=== PATIENT | male | born 1935 | race African-American/Black ===

== ENCOUNTER → 2018-07-11 | Day surgery (SDC) | payer MEDICARE ==
--- NOTE | 2018-07-08 12:55 | Diagnostic Imaging Report ---
EXAM: CHEST 2 VIEWS, PA and lateral DATE: 07/08/2018Time stamp on exam: 12:33 PM INDICATION: Preoperative COMPARISON: None FINDINGS: LINES/TUBES: None LUNGS: Left basilar atelectasis. PLEURA: Small left pleural effusion. HEART AND MEDIASTINUM: Normal size and contour. BONES AND SOFT TISSUES: No acute findings. Degenerative changes of the spine. IMPRESSION: Small left pleural effusion with left basilar atelectasis. Signed by: Dr. Elias Owens DO on 07/08/2018 12:52 PM
[2018-07-08 13:02] LABS: BASOPHILS # (AUTO) 0.1 (0.0-0.1); BASOPHILS % 0.7 % (0.0-1.0); EOSINOPHILS # (AUTO) 0.1 (0.0-0.4); EOSINOPHILS % 1.9 % (0.0-6.0); HEMATOCRIT 32.2 % (38.2-49.6); HEMOGLOBIN 10.3 g/dL (14.0-18.0); LYMPHOCYTES # (AUTO) 2.6 (1.0-3.2); LYMPHOCYTES % 36.2 % (18.0-39.1); MEAN CORPUSCULAR VOLUME 90.7 fL (81-99); MONOCYTES # (AUTO) 0.4 (0.2-0.8); MONOCYTES % 5.7 % (4.4-11.3); NEUTROPHILS % 55.4 % (38.7-80.0); PLATELET COUNT 400 x10e3/uL (140-360); RED BLOOD COUNT 3.55 x10e6/uL (4.3-5.7); RED CELL DISTRIBUTION WIDTH 19.1 % (11.7-14.4)
[~2018-07-11] MED LIST: ALLOPURINOL100 MG PO; AMLODIPINE BESY10 MG PO; AUGMENTIN 500-1 EACH PO; CEFAZOLIN SOD 2 GM/D5W 50ML 50 ML IV ONE; DEXAMETHASONE SOD PHOS INJ 4 MG/ML VIAL ONE; EPHEDRINE SULFATE INJ 50 MG/10 ML SYR ONE; FENTANYL CITRATE/PF 100MCG/2 ML INJ ONE; FINASTERIDE5 MG PO; FLOMAX0.4 MG PO; GLYCOPYRROLATE INJ 1MG/ 5 ML SYR ONE; IOPAMIDOL 610MG/1ML 300 MG/ML VIAL IV ONE; LIDOCAINE HCL 2% LOCAL INJ 5 ML SDV VIAL INJ ONE; LISINOPRIL10 MG PO; ONDANSETRON HCL INJ 2MG/ML 2ML 2 MG/ML VIAL ONE; PROPOFOL IV EMULSION 10 MG/ML 20 ML VIAL ONE; SEVOFLURANE INHAL SOLN 250 ML PEN BTL ONE; SIMVASTATIN20 MG PO; olmesartan PO
--- OUTSIDE RECORDS SUMMARY | 2018-07-11 09:30 | XMS REPORT ---
Author Author [facility] Address Unknown Phone Unavailable Care Team Providers Care Hair Worker Name Role Phone DENNIS VAZQUEZ Unavailable Unavailable Problems This patient has no known problems. Allergies, Adverse Reactions, Alerts This patient has no known allergies or adverse reactions. Medications This patient has no known medications. Results Test Description Test Time Test Comments Text Results Atomic Results Result Comments CHEST 2 VIEWS 2018-07-08 12:51:00 [place] [address] Patient Name: GENE BROOKS MR #: [id number] : 1935 Age/Sex: 82/M Req #: [id number] Adm Physician: Ordered by: DENNIS VAZQUEZ MD Report #: [id number] Location: OR Room/Bed: Procedure: [id number] DX/CHEST 2 VIEWS Exam Date: Exam Time: REPORT STATUS: Signed EXAM: CHEST 2 VIEWS, PA and lateral DATE: 07/08/2018Time stamp on exam: 12:33 PM INDICATION: Preoperative COMPARISON: None FINDINGS: LINES/TUBES: None LUNGS: Left basilar atelectasis. PLEURA: Small left pleural effusion. HEART AND MEDIASTINUM: Normal size and contour. BONES AND SOFT TISSUES: No acute findings. Degenerative changes of the spine. IMPRESSION: Small left pleural effusion with left basilar atelectasis. Signed by: Dr. Delma Owens DO on 07/08/2018 12:52 PM Dictated By: DELMA OWENS DO 1252 Transcribed By: JARVIS on 07/08/18 1252 COPY TO: DENNIS VAZQUEZ MD
--- OUTSIDE RECORDS SUMMARY | 2018-07-11 09:30 | XMS REPORT ---
Author Organization Unknown Address [address] [place] [address] Phone [phone] Care Team Providers Care Transition Advisor Name Role Phone Joaquin Zepeda Jr Unavailable Unavailable Allergies Code Code System Name Reaction Severity Status Onset NKDA Medications Name Status Start Date Stop Date allopurinol 100 mg tablet TAKE 1 TABLET(S) EVERY DAY BY ORAL ROUTE FOR 90 DAYS. Completed 07/18/2017 amlodipine 10 mg tablet TAKE 1 TABLET(S) EVERY DAY BY ORAL ROUTE FOR 90 DAYS. Active Not available dorzolamide 22.3 mg-timolol 6.8 mg/mL eye drops Completed 06/27/2017 Ecotrin Low Strength 81 mg tablet,enteric coated Take 1 tablet every day by oral route for 90 days. Active Not available latanoprost 0.005 % eye drops Active Not available lisinopril 40 mg tablet TAKE 1 TABLET(S) EVERY DAY BY ORAL ROUTE FOR 90 DAYS. Completed 07/18/2017 sildenafil (antihypertensive) 20 mg tablet Take po: 3 to 5 tablets one hour prior to sexual activity; maximun 5 tablets per 24 hours Active Not available simvastatin 20 mg tablet TAKE 1 TABLET(S) EVERY DAY BY ORAL ROUTE FOR 90 DAYS. 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 11/30/2016 Impotence Active 04/05/2017 Benign Prostatic Hypertrophy without Outflow Obstruction Active 04/05/2017 Aphakia Active 06/27/2017 Anemia Active 06/28/2017 Procedures Date Name Performed by 04/23/1972 Hernia Repair Information not available Notes: cataract extraction left eye Lab Results Date Name Specimen Result Interpretation Description Value Range Status Address 07/18/2017 Fecal Occult Blood, Stool ABNORMAL Fecal Globin (Medicare) by Immunochemistry detected Final [facility]: [address] [place] 06/27/2017 CBC W/ Auto Diff Normal White Blood Cell Count 5.5 thousand/uL 3.8-10.8 thousand/uL Final [facility]: [address] [place] Low Red Blood Cell Count 3.88 million/uL 4.20-5.80 million/uL Final [facility]: [address] [place] Low Hemoglobin 11.7 g/dL 13.2-17.1 g/dL Final [facility]: [address] [place] Low Hematocrit 35.7 % 38.5-50.0 % Final [facility]: [address] [place] Normal Mcv 92.0 fL 80.0-100.0 fL Final [facility]: [address] Normal Mch 30.2 pg 27.0-33.0 pg Final [facility]: [address] [place] Normal Mchc 32.8 g/dL 32.0-36.0 g/dL Final [facility]: [address] [place] Normal Rdw 13.8 % 11.0-15.0 % Final [facility]: [address] [place] Normal Platelet Count 283 thousand/uL 140-400 thousand/uL Final [facility]: [address] [facility] Normal Mpv 9.4 fL 7.5-12.5 fL Final [facility]: [address] [facility] Normal Absolute Neutrophils 2849 cells/uL 7649-9093 cells/uL Final [facility]: [address] [facility] Normal Absolute Lymphocytes 2046 cells/uL 850-3900 cells/uL Final [facility]: [address] [facility] Normal Absolute Monocytes 446 cells/uL 200-950 cells/uL Final [facility]: [address] [facility] Normal Absolute Eosinophils 121 cells/uL 15-500 cells/uL Final [facility]: [address] Normal Absolute Basophils 39 cells/uL 0-200 cells/uL Final [facility]: [address] [place] [address], [place] Normal Neutrophils 51.8 % Final [facility]: [address] [place] [address], [place] Normal Lymphocytes 37.2 % Final [facility]: [address] [place] [address], [place] Normal Monocytes 8.1 % Final [facility]: [address] [place] [address], [place] Normal Eosinophils 2.2 % Final [facility]: [address] [place] [address], [place] Normal Basophils 0.7 % Final [facility]: [address] 06/27/2017 Lipid Panel, Serum Normal Cholesterol, Total 154 mg/dL <200 mg/dL Final [facility]: [address] Normal HDL Cholesterol 51 mg/dL >40 mg/dL Final [facility]: [address] Normal Triglycerides 64 mg/dL <150 mg/dL Final [facility]: [address] Normal LDL-cholesterol 88 mg/dL (calc) Final [facility]: [address] Normal Chol/hdlc Ratio 3.0 (calc) <5.0 (calc) Final [facility]: [address] Normal Non HDL Cholesterol 103 mg/dL (calc) <130 mg/dL (calc) Final [facility]: [address] 06/27/2017 HbA1C (Hemoglobin a1C), Blood Normal Hemoglobin a1C 5.0 % of total HGB <5.7 % of total HGB Final [facility]: [address] EAG (mg/dL) 97 (calc) Final [facility]: [address] EAG (mmol/L) 5.4 (calc) Final [facility]: [address] 06/27/2017 Uric Acid, Serum or Plasma Low Uric Acid 3.5 mg/dL 4.0-8.0 mg/dL Final [facility]: [address] 06/27/2017 CMP, Serum or Plasma High Glucose 104 mg/dL 65-99 mg/dL Final [facility]: [address] [place] Normal Urea Nitrogen (BUN) 20 mg/dL 7-25 mg/dL Final [facility]: [address] [place] High Creatinine 1.45 mg/dL 0.70-1.18 mg/dL Final [facility]: [address] Low eGFR Non-afr. Scottish 45 mL/min/1.73m2 > or=60 mL/min/1.73m2 Final [facility]: [address] [place] Low eGFR 53 mL/min/1.73m2 > or=60 mL/min/1.73m2 Final [facility]: [address] [place] [address] Normal BUN/creatinine Ratio 14 (calc) 6-22 (calc) Final [facility]: [address] [place] [address] Normal Sodium 140 mmol/L 135-146 mmol/L Final [facility]: [address] Normal Potassium 4.3 mmol/L 3.5-5.3 mmol/L Final [facility]: [address] [place] [address] Normal Chloride 105 mmol/L 98-110 mmol/L Final [facility]: [address] Normal Carbon Dioxide 26 mmol/L 20-31 mmol/L Final [facility]: [address] [place] [address] Normal Calcium 9.9 mg/dL 8.6-10.3 mg/dL Final [facility]: [address] [place] [address] Normal Protein, Total 8.0 g/dL 6.1-8.1 g/dL Final [facility]: [address] [facility] Normal Albumin 4.3 g/dL 3.6-5.1 g/dL Final [facility]: [address] [facility] Normal Globulin 3.7 g/dL (calc) 1.9-3.7 g/dL (calc) Final [facility]: [address] Normal Albumin/globulin Ratio 1.2 (calc) 1.0-2.5 (calc) Final [facility]: [address] [place] [address] Normal Bilirubin, Total 0.8 mg/dL 0.2-1.2 mg/dL Final [facility]: [address] Normal Alkaline Phosphatase 66 U/L 40-115 U/L Final [facility]: [address] [place] [address] Normal Ast 14 U/L 10-35 U/L Final [facility]: [address] [place] [address] Low Alt 6 U/L 9-46 U/L Final [facility]: [address] [place] [address] 06/27/2017 TSH, Serum or Plasma Normal Tsh 1.15 mIU/L 0.40-4.50 mIU/L Final [facility]: [address] [place] [address] 06/27/2017 Iron + TIBC + Ferritin, Serum Normal Iron, Total 82 mcg/dL 50-180 mcg/dL Final [facility]: [address] [place] [address] Normal Iron Binding Capacity 320 mcg/dL (calc) 250-425 mcg/dL (calc) Final [facility]: [address] [place] [address] Normal % Saturation 26 % (calc) 15-60 % (calc) Final [facility]: [address] [place] [address] Normal Ferritin 36 NG/mL 20-380 NG/mL Final [facility]: [address] [place] [address] 06/27/2017 Test Authorization Test Name: iron, TIBC and ferritin panel Final [facility]: [address] [place] [address] Test Code: [id number] Final [facility]: [address] [place] [address] Client Contact: karrie reyes Final [facility]: [address] [place] [address] Report Always Message Signature Final [facility]: [address] [place] [address] Comment Final [facility]: [address] [place] [address] 06/27/2017 Vitamin B12 + Folate, Serum or Blood Normal Vitamin B12 203 pg/mL 200-1100 pg/mL Final [facility]: [address] [place] [address] Normal Folate, Serum 14.8 NG/mL Final [facility]: [address] [place] [address] Past Encounters 07/26/2017 Benign Hypertensive Renal Disease; Fecal Occult Blood: Positive Joaquin Zepeda Jr, MD: [address], [facility] [address], [place] [address], Ph. 07/18/2017 Benign Hypertensive Renal Disease; Chronic Kidney Disease Stage 3; Anemia; Hypouricemia; Immunization Joaquin Zepeda Jr, MD: [address] [facility] [address], [place] [address], Ph. 06/27/2017 Benign Hypertensive Renal Disease; Hyperlipidemia; Gouty Arthritis of the Hand; Lower Urinary Tract Symptoms Due to Benign Prostatic Hypertrophy; Impotence; Long-term Current Use of Drug Therapy; Adult Health Examination; Advance Directive Discussed with Patient; Depression Screening; At Risk for Falls; Body Mass Index 20-24 - Normal; Immunization Refused Joaquin Zepeda Jr, MD: [address] [address], Ph. 04/05/2017 Benign Hypertensive Renal Disease; Chronic Kidney Disease Stage 3; Gouty Arthritis of the Hand; Hyperlipidemia; Primary Open Angle Glaucoma of Left Eye; Benign Prostatic Hypertrophy without Outflow Obstruction; Impotence; Immunization Refused Mundo Khan MD: [address], [address] [address], Ph. Social History Smoking Status Never Smoker Vaccine List Vaccine Type pneumococcal conjugate PCV 13 07/18/20170.5 mL Plan of Care Patient Instructions It was good to see you in the office today for your Medicare Annual Wellness Visit. You have been provided some information on healthy nutrition, including a diet rich in fruits and vegetables, minimizing simple carbohydrates, salt, and saturated fats. I want to encourage regular cardiovascular exercise such as walking at least 30 minutes daily, 5 times per week. Please remember to schedule any preventive health measures that we talked about today. You have also been provided education on fall prevention and community- based lifestyle interventions to help reduce health risks and promote healthy living in your [facility] folder. Screening Recommendations 1. Vaccines Pneumococcal: discussed today and information sent with patient in their [facility] health folder Influenza: discussed today and information sent with patient in their [facility] health folder Shingles: discussed today and information sent with patient in their [place] health folder Tetanus: discussed today and information sent with patient in their [place] health folder 2. Prostate Screening: discussed today and information sent with patient in their [place] health folder 3. Colorectal cancer Screening Colonoscopy: discussed today and information sent with patient in their [place] health folder Fecal Occult Blood: discussed today and information sent with patient in their [place] health folder 4. Bone Mass Measurement: discussed today 5. Eye Exam Screening: discussed today 6. Cholesterol Screening: discussed today 7. Diabetes Screening: discussed today Reminders Provider Appointments None recorded. Lab None recorded. Referral None recorded. Procedures None recorded. Surgeries None recorded. Imaging None recorded. Vitals 07/26/2017 11:15AM Work In Same Day Height Weight BMI 5 ft 7 in 142 lbs 22.2 kg/m2 07/18/2017 09:15AM Est Patient Height Weight BMI Blood Pressure 5 ft 7 in 143 lbs 22.4 kg/m2 (1) 144/82 mm[Hg] (2) 138/82 mm[Hg] 06/27/2017 09:15AM JOURNEYMAN PIPE FITTER/EST CPX Height Weight BMI Blood Pressure 5 ft 7 in 148 lbs 23.2 kg/m2 150/80 mm[Hg] 04/05/2017 12:30PM Est Patient Height Weight BMI Blood Pressure 5 ft 7 in 146 lbs 22.9 kg/m2 130/70 mm[Hg]
--- OUTSIDE RECORDS SUMMARY | 2018-07-11 09:31 | XMS REPORT | Encounter Summary ---
Author Organization Unknown Address [address] [place] [address] Phone [phone] Care Team Providers Care Erp Engineer Name Role Phone Dr. Joaquin Zepeda 3 [phone] Joaquin Zepeda Jr, MD 3 [phone] Reason for Visit hospital follow up - TCM (VFP) Instructions 1. Hospital patient rolling walker physical therapy referral - PT to susy and kristin as indicated 2. Urostomy present 3. Sepsis 4. Urinary tract infectious disease 5. Ascites 6. At risk for falls preventing falls: care instructions Discussion Note: None recorded. Plan of Care Patient Instructions Please follow up with your doctor in two weeks. Follow up with any specialists that we discussed during your visit today. If you need help getting your medications filled, our [facility] can sync medication refills, deliver within a 10 mile radius, or [employer] overnight at no additional cost. Please watch for warning symptoms that may occur: *fever *redness/oozing at surgical site *shortness of breath *uncontrolled pain *unexpected weight gain/loss *high or low blood pressure *chest pain *confusion *any other health concerns Call us at if you experience these symptoms. In addition to these services our office offers social work coordinator services, home health options and chronic conditions management. Please reach out to us with your particular needs. Evening and Sunday clinic hours are available if you have problems. If you have problems after hours, you can reach the [facility] physician construction sales manager at . Reminders Provider Appointments None recorded. Lab None recorded. Referral Physical Therapy Referral 05/15/2018 [facility] Department (Use This One) Procedures None recorded. Surgeries None recorded. Imaging None recorded. Medications Name Start Date amlodipine 5 mg tablet Take 1 tablet every day by oral route. cefdinir 300 mg capsule Take 1 capsule every 12 hours by oral route for 6 days. 05/14/2018 latanoprost 0.005 % eye drops 1 drop every day to left eye olmesartan 40 mg tablet Take 1 tablet every day by oral route. simvastatin 20 mg tablet Take 1 tablet every day by oral route. timolol maleate 0.5 % eye gel forming solution Instill 1 drop every day by ophthalmic route for 30 days. Medications Administered None recorded. Vitals Height Weight BMI Blood Pressure 5 ft 7 in 128 lbs 20 kg/m2 138/78 mm[Hg] Lab Results None recorded. 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 Impotence Active 04/05/2017 Benign Prostatic Hypertrophy without Outflow Obstruction Active 04/05/2017 Aphakia Active 06/27/2017 Anemia Active 06/28/2017 History of Polyp of Colon Active 08/09/2017 Internal Hemorrhoids Active 12/25/2017 Hypouricemia Active 04/29/2018 Procedures Date Name Performed by 08/16/2017 Colonoscopy & Polypectomy Information not available 04/23/1972 Hernia Repair Information not available 04/29/2018 CT, Abdomen, W/o Contrast [facility] [address] [facility] [address] [place] [address] (Work Place) 05/08/2018 US, Abdomen, Complete [facility] [address] [place] [address] [place] [address] (Work Place) Vaccine List Vaccine Type pneumococcal conjugate PCV 13 07/18/20170.5 mL pneumococcal polysaccharide PPV23 01/24/2006 Social History Smoking Status Never Smoker Past Encounters 05/15/2018 Hospital Patient; Urostomy Present; Sepsis; Urinary Tract Infectious Disease; Ascites; At Risk for Falls Flora Dickerson NP: [id number] [facility], [address], [place] [address], Ph. 04/29/2018 Abdominal Pain; Diverticular Disease; Hypouricemia; Benign Hypertensive Renal Disease; Low Blood Pressure Joaquin Zepeda Jr, MD: [address], [address], [place] [phone], Ph. History of Present Illness TCM Provider Visit Reported By: Patient HPI: Timing: Date of admit:, Date of discharge:, Date of Initial Contact:, Please describe what events led up to this hospitalization:, Is Transitional Care Management team involved? Yes. Discharge Information: Discharge Diagnoses:, Discharged from: [facility], Discharged to: Home, Hospital Records (H&P, DC Summary, Transition of Care Document) reviewed and scanned? Yes, Current Caregivers:family, Home health ordered? no If so, Agency Name . Functional Status No difficulty following discharge instructions, Taking medications as prescribed, Understands missed doses, Following recommended activity level, Does patient need help getting medications filled? no, Is the patient dependent upon others to leave the home? yes, Durable medical equipment required? yes Note:Patient presents for initial TCM visit and follow up for chronic conditions at home. Pt has issues with transportation and getting to office for visits. Patient is unable to get to the office easily due to taxing effort ( fall risk and uses walking aids or wheelchair) and or the caregiver/family is incapable of taking them into the office without taxing effort. Current living condition is (satisfactory). Home is clean and uncluttered. Family and provider assists with ADLs.<div>
</div><div>Past medical history, family history, and social history were reviewed. Medication list reconciliation completed and allergies were also reviewed. Medication refills will be given as needed and laboratory testing will be considered and planned as needed to monitor chronic conditions. </div><div>
</div><div>NAD. Spouse present during visit. <div>
</div>< /div> Review of Systems Comprehensive General Adult ROS Reported By: Patient Constitutional: Constitutional: no fever, no night sweats, no significant weight gain, no significant weight loss Cardiovascular: Cardiovascular: no chest pain, no arm pain on exertion, no shortness of breath when walking, no shortness of breath when lying down, no palpitations, no known heart murmur, no lightheadedness Respiratory: Respiratory: no cough, no wheezing, no shortness of breath, no coughing up blood, no sleep apnea Gastrointestinal: Gastrointestinal: no abdominal pain, no nausea, no vomiting, no constipation, normal appetite, no diarrhea, not vomiting blood, no dyspepsia Genitourinary: Genitourinary: no hematuria, no increased frequency; urostomy Musculoskeletal: Musculoskeletal: muscle weakness Integumentary: Skin: no jaundice, no rashes, no laceration Neurologic: Neurologic: no loss of consciousness, no weakness, no numbness, no seizures, no dizziness, no migraines, no headaches, no tremor Psychiatric: Psych: no depression, no sleep disturbances, feeling safe in a relationship, no alcohol abuse, no anxiety, no hallucinations, no suicidal thoughts Endocrine: Endocrine: no fatigue Physical Exam General Adult Exam (male), Brief Abdominal Pain Exam Reported By: Patient Beater Engineer: Beater Engineer: present Constitutional: General Appearance: healthy-appearing, well-nourished, well-developed, alert, oriented. Level of Distress: NAD Psychiatric: Insight: good judgement. Mental Status: active and alert, normal mood, normal affect. Orientation: to time, to place, to person. Memory: recent memory normal, remote memory normal Lungs: Respiratory effort: no dyspnea. Auscultation: breath sounds normal, good air movement, no wheezing, no rales/crackles, no rhonchi. Lungs: clear to auscultation bilaterally Cardiovascular: Heart Auscultation: RRR, normal S1, normal S2, no murmurs Abdomen: Inspection and Palpation: soft, non-distended, no tenderness, no guarding, bowel sounds 4 quadrants; urostomy present. Liver: non-tender. Spleen: non-tender Musculoskeletal:: Motor Strength and Tone: abnormal; BLE 3/5. Joints, Bones, and Muscles: limited ROM. Extremities: no cyanosis, no edema
--- OUTSIDE RECORDS SUMMARY | 2018-07-11 09:31 | XMS REPORT | Encounter Summary ---
Author Organization Unknown Address [address] [place] [address] Phone [phone] Care Team Providers Care Lead Data Entry Operator Name Role Phone Dr. Joaquin Zepeda 3 [phone] Joaquin Zepeda Jr, MD 3 [phone] Reason for Visit hospital follow up - TCM (VFP) Instructions 1. Hospital patient rolling walker physical therapy referral - PT to eval and tx as indicated 2. Urostomy present 3. Sepsis 4. Urinary tract infectious disease 5. Ascites Discussion Note: None recorded. Patient educational handouts: No information available. Plan of Care Patient Instructions Please follow up with your doctor in two weeks. Follow up with any specialists that we discussed during your visit today. If you need help getting your medications filled, our [facility] can sync medication refills, deliver within [...] addition to these services our office offers aids social worker services, home health options and chronic conditions management. Please reach out to us with your particular needs. Evening and Sunday clinic hours are available if you have problems. If you have problems after hours, you can reach the [facility] physician lead injection mold technician at . Reminders Provider Appointments Est Patient 05/20/2018 10:15AM Joaquin Zepeda Jr, MD Lab None recorded. Referral Physical Therapy Referral 05/15/2018 [facility] Department (Use This One) Procedures None recorded. [...] not available 04/29/2018 CT, Abdomen, W/o Contrast [facility] [address] [place] [address] (Work Place) 05/08/2018 US, Abdomen, Complete [facility] [address] [place] [address] (Work Place) Vaccine List Vaccine Type pneumococcal conjugate PCV 13 07/18/20170.5 mL pneumococcal polysaccharide PPV23 01/24/2006 Social History Smoking Status Never Smoker Past Encounters 05/15/2018 Hospital Patient; Urostomy Present; Sepsis; Urinary Tract Infectious Disease; Ascites Flora Dickerson CABLE LAYER: [address] [facility], [address], [place] [address], Ph. 04/29/2018 Abdominal Pain; Diverticular Disease; Hypouricemia; Benign Hypertensive Renal Disease; Low Blood Pressure Joaquin Zepeda Jr, MD: [address] [facility], [address], [place] [address], Ph. History of Present Illness TCM Provider Visit Reported By: Patient HPI: Timing: Date of admit:, Date of discharge:, Date of Initial Contact:, Please describe what events led up to this hospitalization:, Is Transitional Care Management team involved? Yes. Discharge Information: Discharge Diagnoses:, Discharged from: [facility], Discharged to: Home, Hospital Records (H&P, [...] Brief Abdominal Pain Exam Reported By: Patient Instrument Room Technician: Instrument Room Technician: present Constitutional: General Appearance: healthy-appearing, well-nourished, well-developed, [...]
--- OUTSIDE RECORDS SUMMARY | 2018-07-11 09:31 | XMS REPORT | Encounter Summary ---
Author Organization Unknown Address [address] [place] [address] Phone [phone] Care Team Providers Care Molecular Modeler Name Role Phone Dr. Joaquin Zepeda 3 [phone] Joaquin Zepeda Jr, MD 3 [phone] Reason for Visit Quality BMI DEPRESSION FALL; AWV Annual Wellness Visit Male (VFP); Quality 65+ Instructions 1. Adult health examination 2. Body mass index less than 20 learning about healthy weight 3. Advance directive discussed with patient advance care planning: care instructions 4. Depression screening 5. At risk for falls preventing falls: care instructions 6. Benign hypertensive renal disease CMP, serum or plasma CBC w/ auto diff TSH, serum or plasma amlodipine 10 mg tablet olmesartan 40 mg tablet 7. Hyperlipidemia lipid panel, serum simvastatin 20 mg tablet 8. Chronic kidney disease stage 3 9. Benign prostatic hypertrophy with outflow obstruction 10. Indwelling urinary catheter bulb in urethra 11. Hypouricemia uric acid, serum or plasma 12. Impaired fasting glycaemia HbA1c (hemoglobin A1c), blood 13. Mild protein-calorie malnutrition (weight for age 75-89% of standard) Discussion Note: None recorded. Plan of Care Patient Instructions It was [...] risks and promote healthy living in your Annual Wellness folder. Screening Recommendations 1. Vaccines Pneumococcal: Recommended today Influenza: Recommended today Shingles: Recommended today Tetanus: Recommended today 2. Prostate Screening: No screening necessary 3. Colorectal cancer Screening Colonoscopy: No screening necessary Fecal Occult Blood: No screening necessary 4. Bone Mass Measurement: No screening necessary 5. Eye Exam Screening: discussed today 6. Cholesterol Screening: Ordered 7. Diabetes Screening: Ordered Reminders Provider Appointments Return to Office on or around 10/01/2018 Joaquin Zepeda Jr, MD Lab CMP, Serum or Plasma 07/01/2018 [facility] CBC W/ Auto Diff 07/01/2018 [facility] Lipid Panel, Serum 07/01/2018 [facility] TSH, Serum or Plasma 07/01/2018 [facility] Uric Acid, Serum or Plasma 07/01/2018 [facility] HbA1C (Hemoglobin a1C), Blood 07/01/2018 [facility] Referral None recorded. Procedures None recorded. Surgeries None recorded. Imaging None recorded. Medications Name Start Date amlodipine 10 mg tablet Take 1 tablet every day by oral route. latanoprost 0.005 % eye drops 1 drop every day to left eye olmesartan 40 mg tablet Take 1 tablet every day by oral route. simvastatin 20 mg tablet Take 1 tablet every day by oral route. sulfamethoxazole 800 mg-trimethoprim 160 mg tablet Take 1 tablet twice a day by oral route for 7 days. 07/01/2018 timolol maleate 0.5 % eye gel forming solution Instill 1 drop every day by ophthalmic route for 30 days. Medications Administered None recorded. Vitals Height Weight BMI Blood Pressure 5 ft 7 in 120 lbs 18.8 kg/m2 134/74 mm[Hg] Lab Results None recorded. 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 Impotence Active 04/05/2017 Aphakia Active 06/27/2017 Anemia Active 06/28/2017 History of Polyp of Colon Active 08/09/2017 Internal Hemorrhoids Active 12/25/2017 Hypouricemia Active 04/29/2018 Benign Prostatic Hypertrophy with Outflow Obstruction Active 06/03/2018 Indwelling Urinary Catheter Bulb in Urethra Active 06/03/2018 Mild Protein-calorie Malnutrition (Weight for Age 75-89% of Standard) Active 07/01/2018 Procedures Date Name Performed by 08/16/2017 Colonoscopy & Polypectomy Information not available 04/23/1972 Hernia Repair Information not available Vaccine List Vaccine Type pneumococcal conjugate PCV 13 07/18/20170.5 mL pneumococcal polysaccharide PPV23 01/24/2006 Social History Smoking Status Never Smoker Past Encounters 07/01/2018 Adult Health Examination; Body Mass Index Less than 20; Advance Directive Discussed with Patient; Depression Screening; At Risk for Falls; Benign Hypertensive Renal Disease; Hyperlipidemia; Chronic Kidney Disease Stage 3; Benign Prostatic Hypertrophy with Outflow Obstruction; Indwelling Urinary Catheter Bulb in Urethra; Hypouricemia; Impaired Fasting Glycaemia; Mild Protein-calorie Malnutrition (Weight for Age 75-89% of Standard) Joaquin Zepeda Jr, MD: [address], [address], [place] [address], Ph. 06/03/2018 Benign Hypertensive Renal Disease; Chronic Kidney Disease Stage 3; Benign Prostatic Hypertrophy with Outflow Obstruction; Indwelling Urinary Catheter Bulb in Urethra Jaoquin Zepeda Jr, MD: [address], [address], [place] [address], Ph. History of Present Illness Hypertension Reported By: Patient HPI: Severity: mild. Onset/Timing: gradual onset. Alleviating Factors: relieved with rest, medication. Self Care: not under emotional stress, blood pressure goal: 130/80. Associated Symptoms: no shortness of breath, no fatigue, no decline in exercise capacity Mini Cog Reported By: Patient Functional Ability: Personal/Social/ Draw a clock and write in the numbers in the correct place, and set the time to 10 minutes after 11 o'clock was completed correctly? No, 3 word recall: Your nurse or doctor will ask you to remember 3 words. In 5 minutes, they will ask you to repeat them. Patient recalled 2 words Hyperlipidemia Reported By: Patient HPI: Type of hyperlipidemia: combined, hypercholesterolemia. Duration: chronic. Current Therapy: currently taking: simvastatin, last LDL level: 88 date: 88. Compliance: compliant. Complications: no coronary artery disease. Risk Factors: hypertension Note:Patient presents for routine medication refill . Currently without new complaint. Review of Systems Comprehensive General Adult ROS Reported By: Patient Constitutional: Constitutional: no significant weight gain, no significant weight loss Cardiovascular: Cardiovascular: no chest pain, no shortness of breath when walking Respiratory: Respiratory: no cough, no wheezing, no shortness of breath Endocrine: Endocrine: no fatigue Physical Exam Neurology Exam Reported By: Patient Constitutional: Weight: well-nourished. Ambulation: ambulates independently Head: Size/Trauma: normocephalic Mental Status: Orientation oriented to person, oriented to place, oriented to time. Mood/Affect: appropriate mood, appropriate affect. Language: has spontaneous speech. Memory: recent memory intact, remote memory intact. Fund of Knowledge: current events, past history
--- OUTSIDE RECORDS SUMMARY | 2018-07-11 09:31 | XMS REPORT | Encounter Summary ---
Author Organization Unknown Address [address] [place] [address] Phone [phone] Care Team Providers Care Pain Management Specialist Name Role Phone Dr. Joaquin Zepeda 3 [phone] Joaquin Zepeda Jr, MD 3 [phone] Reason for Visit hospital follow up - TCM (VFP) Instructions 1. Hospital patient rolling walker physical therapy referral - PT to susy and tx as indicated 2. Urostomy present 3. Sepsis 4. Urinary tract infectious disease 5. Ascites Discussion Note: None recorded. Patient educational handouts: No information available. Plan of Care Patient Instructions Please follow up with your doctor in two weeks. Follow up with any specialists that we discussed during your visit today. If you need help getting your medications filled, our [facility] can sync medication refills, [...] to these services our office offers social economist services, home health options and chronic conditions management. Please reach out to us with your particular needs. Evening and Sunday clinic hours are available if you have problems. If you have problems after hours, you can reach the [facility] physician industrial production manager at . Reminders Provider Appointments None recorded. Lab None recorded. Referral Physical Therapy Referral 05/15/2018 [facility] Department (Use This One) Procedures None [...] not available 04/29/2018 CT, Abdomen, W/o Contrast [facility] [address] [place] [address] (Work Place) 05/08/2018 US, Abdomen, Complete [facility] [place] [id number] [place] [address] [address] [place] [address] (Work Place) Vaccine List Vaccine Type pneumococcal conjugate PCV 13 07/18/20170.5 mL pneumococcal polysaccharide PPV23 01/24/2006 Social History Smoking Status Never Smoker Past Encounters 05/15/2018 Hospital Patient; Urostomy Present; Sepsis; Urinary Tract Infectious Disease; Ascites Flora Dickerson NP: [id number] [facility], [address], [place] [address], Ph. 04/29/2018 Abdominal Pain; Diverticular Disease; Hypouricemia; Benign Hypertensive Renal Disease; Low Blood Pressure Joaquin Zepeda Jr, MD: [address] [facility], [address], [place] [address], Ph. History of Present Illness TCM Provider Visit Reported By: Patient HPI: Timing: Date of admit:, Date of discharge:, Date of Initial Contact:, Please describe what events led up to this hospitalization:, Is Transitional Care Management team involved? Yes. Discharge Information: Discharge Diagnoses:, Discharged from: [facility], Discharged to: Home, Hospital Records (H&P, [...] Brief Abdominal Pain Exam Reported By: Patient Pig Handler: Pig Handler: present Constitutional: General Appearance: healthy-appearing, well-nourished, well-developed, [...]
--- OUTSIDE RECORDS SUMMARY | 2018-07-11 09:31 | XMS REPORT | Encounter Summary ---
Author Organization Unknown Address [address] [place] [address] Phone [phone] Care Team Providers Care Director Peoplesoft Name Role Phone Dr. Joaquin Zepeda 3 [phone] Joaquin Zepeda Jr, MD 3 [phone] Reason for Visit other - see typed reason Instructions 1. Benign hypertensive renal disease 2. Chronic kidney disease stage 3 3. Benign prostatic hypertrophy with outflow obstruction urology referral 4. Indwelling urinary catheter bulb in urethra Discussion Note: None recorded. Patient educational handouts: No information available. Plan of Care Reminders Provider Appointments None recorded. Lab None recorded. Referral Urology Referral 06/03/2018 Procedures None recorded. Surgeries None recorded. Imaging [...] BMI Blood Pressure 5 ft 7 in 125 lbs 19.6 kg/m2 132/64 mm[Hg] Lab Results None recorded. Allergies Code [...] Urinary Catheter Bulb in Urethra Active 06/03/2018 Procedures Date Name Performed by 08/16/2017 Colonoscopy & Polypectomy Information not available 04/23/1972 Hernia Repair Information not available 05/08/2018 US, Abdomen, Complete [facility] [place] [address] [facility] [address] [place] [address] (Work Place) Vaccine List Vaccine Type pneumococcal conjugate PCV 13 07/18/20170.5 mL pneumococcal polysaccharide PPV23 01/24/2006 Social History Smoking Status Never Smoker Past Encounters 06/03/2018 Benign Hypertensive Renal Disease; Chronic Kidney Disease Stage 3; Benign Prostatic Hypertrophy with Outflow Obstruction; Indwelling Urinary Catheter Bulb in Urethra Joaquin Zepeda Jr, MD: [address] [facility], [address], [place] [address], Ph. 05/15/2018 Hospital Patient; Urostomy Present; Sepsis; Urinary Tract Infectious Disease; Ascites; At Risk for Falls Flora Dickerson CRIBBER: [address] [facility], [address], [place] [address], Ph. History of Present Illness Note:Patient presents for routine follow up. Currently without new complaint. Review of Systems Comprehensive General Adult ROS Reported By: Patient Constitutional: Constitutional: no significant weight gain, no significant weight loss Cardiovascular: Cardiovascular: no chest pain, no shortness of breath when walking Respiratory: Respiratory: no cough, no wheezing, no shortness of breath Endocrine: Endocrine: no fatigue Physical Exam Brief Abdominal Pain Exam Reported By: Patient Constitutional: General Appearance: well-developed, well-nourished, healthy-appearing, alert, oriented, NAD Cardiovascular: Heart Auscultation: S1 present, S2 present, no murmurs Lungs: Lungs: clear to auscultation bilaterally, no wheezing, no crackles Abdomen: Inspection and Palpation: soft, bowel sounds 4 quadrants, no tenderness, non-distended
[2018-07-11 12:45] VITALS: BP 143/81
--- NOTE | 2018-07-12 02:29 | Operative Report ---
DATE OF PROCEDURE: 07/11/2018 SURGEON: Nadia Alaniz MD SERVICE: Urology. PREOPERATIVE DIAGNOSES: 1. Urethral stricture, severe. 2. Urinary tract infection. 3. SP tube in place. 4. Benign prostatic hyperplasia. 5. History of retention. POSTOPERATIVE DIAGNOSES: 1. Urethral stricture, severe. 2. Urinary tract infection. 3. SP tube in place. 4. Benign prostatic hyperplasia. 5. History of retention. OPERATIONS PERFORMED: 1. Retrograde urethrogram under fluoroscopic control. 2. Cystoscopy and direct vision internal urethrotomy of 2 strictures in the pendulous urethra away from the sphincter. 3. Bilateral retrograde pyelograms under fluoroscopic control, this was done as part of the evaluation of the urinary tract infection and hematuria. 4. Interpretation of x-ray, radiologist not present. 5. Supervision of fluoroscopy. 6. Removal of SP tube under fluoroscopy. ACADEMIC ASSISTANT: None. ANESTHESIA: General. CLINICAL INDICATION: This is an 82-year-old patient, who had the suprapubic tube for urinary retention. The patient was brought for further evaluation, and was noticed to have a very tight, almost pinhole stricture. The patient was advised about the planned procedure and potential benefits and complications, and accepted them. DESCRIPTION OF PROCEDURE AND FINDINGS: After appropriate level of anesthesia was achieved, retrograde urethrogram was done under fluoroscopic control. A small Ritter catheter was inflated in the distal urethra and injection of contrast demonstrated a very tight strictures. This was followed with ureteroscopy and direct vision internal urethrotomy. Before doing any cut, the guidewire was negotiated through the stricture up into the bladder. The strictures were incised at 12 o'clock. Following this, a scope was inserted into the bladder. The bladder was quite trabeculated. No tumor or foreign body was identified within the bladder. A Cone Tip catheter was then used and bilateral retrograde pyelograms were done under fluoroscopic control. Except for minimal dilation of the ureters, no intrinsic lesions were identified. Following this, the guidewire was kept in place and 22-[place] 10 mL Ritter catheter was advanced over the wire into the bladder and placed in a proper position. The patient tolerated the procedure well and was transferred in satisfactory condition to the recovery room and he will be followed. At this point, the suprapubic tube was removed under fluoroscopic control. Following this, the patient was transferred in satisfactory condition to the recovery room. He will be followed in the office 2 weeks. Medication for pain and antibiotic were given. MD VIJI Reeves/DELLA /[id number]
== END | disposition home or self-care (01) ==
LOC: OR 09:27
PROVIDERS: ATTEND Urology
DX: N35.919 Unspecified urethral stricture, male, unspecified site (principal); N39.0 Urinary tract infection, site not specified; Z43.5 Encounter for attention to cystostomy; N32.89 Other specified disorders of bladder; N40.0 Benign prostatic hyperplasia without lower urinary tract symptoms; I10 Essential (primary) hypertension; E78.5 Hyperlipidemia, unspecified; D64.9 Anemia, unspecified; Z01.810 Encounter for preprocedural cardiovascular examination; Z01.812 Encounter for preprocedural laboratory examination; Z01.818 Encounter for other preprocedural examination
CPT/HCPCS: 36415; 52005; 52276; 71046; 74450; 85025; 93005; C1758; J0690; J1100; J2001; J2405; J2704; J3490; Q9967